=== PATIENT | female | born 2005 | race Caucasian/White ===

== ENCOUNTER 2024-09-22 09:18 | Emergency (ER) | payer MEDICAID, SELFPAY ==
--- NOTE | 2024-09-22 09:31 | EDNOTE_ITS ---
ED Wound/Laceration-RME/HPI General Chief Complaint: Wound/Laceration Stated Complaint: RIGHT LEG WOUND FROM FERAL CAT Time Seen by Provider: 09/22/24 09:31 Arrival date/time: 09/22/24 09:18 This is a 19-year-old female that comes into the emergency room with complaints of cat bite to her right lower leg. Patient states she was walking her dog and a cat that she thinks is possibly the neighbors attacked her. Patient has some scratches to her anterior lower leg and some puncture wounds to her posterior calf. Related Data Previous Rx's ?Medication ?Instructions ?Recorded ibuprofen 600 mg tablet 600 mg PO Q6H PRN fever or p ain 03/08/22 #30 tabs hydroxyzine HCl 25 mg tablet 25 mg PO TID PRN anxiety #30 tabs 12/06/22 amoxicillin 875 mg-potassium 1 tab PO Q12H #14 tabs clavulanate 125 mg tablet ibuprofen 600 mg tablet 600 mg PO QID PRN pain #10 t abs 09/22/24 Allergies Allergy/AdvReac Type Severity Reaction Status Date / Time No Known Allergies Allergy Verified 09/22/24 09:20 Review of Systems Review of Systems Systems Reviewed: All systems reviewed, normal except as documented Past Medical History Social History SMOKING STATUS: Current some day smoker ED Exam General General appearance: Present alert and in no apparent distress Head Head exam: Present atraumatic Eye Eye exam: Present normal appearance, PERRL and EOMI ENT ENT exam: Present normal exam, normal oropharynx and mucous membranes moist Neck Neck exam: Present normal inspection, full ROM and trachea midline Chest Chest inspection: Present normal inspection and symmetric chest wall rise Respiratory Respiratory exam: Present other (breathing even and unlabored ) Cardiovascular Cardiovascular exam: Present regular rate and other (cap refill less than 2 seconds) Abdominal Exam Abdominal exam: Present soft Extremities Exam Extremities exam: Present normal inspection and full ROM Back Exam Back exam: Present normal inspection and full ROM Neurological Exam Neurological exam: Present alert, oriented X3 and CN II-XII intact Psychiatric Psychiatric exam: Present normal affect and normal mood Skin Skin exam: Present warm, dry and other (right scratches to her anterior lower leg and some puncture wounds to her posterior calf. ) Course Quality Measures none Orders Category Date Time Status Wound Care NOW Care 09/22/24 09:56 Completed Amoxicillin/Pot Clav 875 [Augmentin 875] Med 09/22/24 09:59 Discontinued 1 tab PO X1 ONE Ibuprofen Tab [Motrin Tab] Med 09/22/24 09:59 Discontinued 800 mg PO X1 ONE Tetanus, Diphtheria Toxoids/Pf [Tenivac-Adult] Med 09/22/24 09:59 Discontinued 0.5 ml IMI .ONCE ONE Vital Signs Vital signs: Vital Signs Temperature 98.9 F 09/22/24 09:38 Pulse Rate 58 L 09/22/24 09:38 Respiratory Rate 18 09/22/24 09:38 Blood Pressure 97/61 09/22/24 09:38 Pulse Oximetry (%) 97 09/22/24 09:38 Oxygen Delivery Method Room Air 09/22/24 09:38 Wound / Laceration MDM Narrative MDM Narrative:: Spoke to patient at length. Patient's wound cleansed and dressing placed over the wound. I told patient to take pictures of wound to monitor to see if it is getting worse. Because multiple puncture wounds to the back of her leg and it was from a cat that is not hers. I will treat patient with antibiotics. I spoke to patient about rabies. Patient does not think it has rabies. She would like to hold off on any rabies medication. Today I gave patient a tetanus shot. Patient told to follow-up with her primary provider in 1 to 2 days. Come back to the emergency room symptoms change or worsen. Patient data External records reviewed:: [facility] previous records Clinical information provided by:: patient Social determinants that could affect healthcare access:: none Patient has the following chronic illnesses:: none How is presenting disease/condition affected by chronic disease/condition?: no chronic disease Evaluation data The following diagnostics were reviewed and interpreted by me:: other (specify) Lab and/or radiology exams considered but not ordered:: none Interpretation Summary: see note Medications / Prescriptions Medications or Prescriptions considered but not ordered:: none Medication administrations:: Medication Administration History Discontinued Medications Amoxicillin/Clavulanate Potassium (Amoxicillin/Pot Clav 875 Tablet) 1 tab PO X1 ONE Stop: 09/22/24 10:00 Last Admin: 09/22/24 10:27 Dose: 1 tab Documented By: KATE Ibuprofen (Ibuprofen Tab 400 Mg Tablet) 800 mg PO X1 ONE Stop: 09/22/24 10:00 Last Admin: 09/22/24 10:27 Dose: 800 mg Documented By: KATE Tetanus/Diphtheria Toxoids (Tetanus,Diphtheria Toxoids/Pf (Adult) 0.5 Ml Syringe) 0.5 ml IMi .ONCE ONE Stop: 09/22/24 10:00 Last Admin: 09/22/24 10:28 Dose: 0.5 ml Documented By: KATE see mar Consultations Consultation(s) initiated? (list below): No Diagnosis Wound Differential Diagnosis: laceration, abscess, abrasion and other (celluilitis, cat bite ) Most likely diagnosis given after review of the tests above:: cat bite s/p abrasions Admission Indicated Admission indicated?: not indicated Admission Request Was there a request for admission?: No Disposition Plan Disposition Plan: Discharge Discharge Attestation Discharge Attestation: The patient and all family members were given an opportunity to ask questions and understood the discharge instructions. Discharge instructions specifically effects, indications for sooner follow up or return to the emergency department, and the expected course of current diagnosis. Patient condition: Stable Discharge Plan Plan Patient Disposition: HOME (Self Care) Patient condition on transfer: Stable Prescriptions/Referrals Prescriptions/Med Rec: New amoxicillin-pot clavulanate 875-125 mg tablet 1 tab PO Q12H Qty: 14 0RF ibuprofen 600 mg tablet 600 mg PO QID PRN (Reason: pain) Qty: 10 0RF No Action ibuprofen 600 mg tablet 600 mg PO Q6H PRN (Reason: fever or pain) Qty: 30 0RF hydroxyzine HCl 25 mg tablet 25 mg PO TID PRN (Reason: anxiety) Qty: 30 0RF Problem List Clinical Impression: Cat bite, Puncture wound of lower leg, right Patient/Caregiver Discharge Instructions Discharge Activity: activity as tolerated Education Materials: ED Cat Bite, ED Puncture Wound (General) Additional Instructions: Follow up with primary provider in 1-2 days. Come back to ED if symptoms change or worsen Print Language: Belarusian Stand Alone Forms: Denae Award Info., Patient Portal Info Letter PA/INTEGRATION CONSULTANT Supervising Physician SHONDA/INTEGRATION CONSULTANT Supervising Physician: valentina
[2024-09-22 09:38] VITALS: BP 97/61; PULSE 58; RESP 18; TEMP 37.2; O2SAT 97; BMI 24.7
[2024-09-22] MEDS: IBUPROFEN TAB 400 MG TABLET 800 MG PO (10:27)
[2024-09-22] MEDS: AMOXICILLIN/POT CLAV 875 TABLET 1 TAB PO (10:27)
[2024-09-22] MEDS: TETANUS,DIPHTHERIA TOXOIDS/PF (ADULT) 0.5 ML SYRINGE IMi (10:28)
== END 2024-09-22 10:58 | disposition home or self-care (01) ==
PROVIDERS: Emergency Provider Emergency Medicine; PCP Family Medicine
DX: S81.851A Open bite, right lower leg, initial encounter (principal); W55.01XA Bitten by cat, initial encounter; Y93.K1 Activity, walking an animal; Z23 Encounter for immunization
CPT/HCPCS: 90471; 90714; 99282; A9270

== ENCOUNTER 2024-12-21 07:15 | Emergency (ER) | payer MEDICAID, SELFPAY ==
[2024-12-21 07:16] VITALS: BMI 25.4
--- NOTE | 2024-12-21 07:31 | XR_ITS ---
Examination: Transvaginal ultrasound of the pelvis, complete Technique: Transvaginal sonographic images pelvis performed using ferrara scale imaging Exam date and time: December 21 code 2024, 0744 hours INDICATIONS: Onset left-sided pelvic pain beginning 2 weeks ago FINDINGS: Uterus 9.2 cm, endometrial stripe 0.3 cm, no uterine mass or intrauterine gestation Right ovary 2.5 cm arterial flow. Left ovary 3.2 cm low Mild to moderate fluid in the cul-de-sac. IMPRESSION: No uterine mass or intrauterine gestation Mild to moderate free fluid in the cul-de-sac, differential would include pelvic inflammatory disease, clinical correlation advised
[2024-12-21 07:32] VITALS: BP 104/64; PULSE 62; RESP 18; TEMP 36.6; O2SAT 98
--- NOTE | 2024-12-21 07:32 | PD.EDRME ---
Rapid Medical Screening Exam [facility] Arrival date/time: 12/21/24 07:15 CC: Left upper and left lower quadrant abdominal pain HPI ongoing for 2 weeks worse this morning. 1 round of diarrhea. Denies nausea or vomiting. No prior history of similar events denies any painful urination. Chief Complaint: Abdominal Pain Time Seen by Provider: 12/21/24 07:29
[2024-12-21 07:54] LABS: Collection Type, Urine Clean Catch
[2024-12-21 07:56] LABS: Basophils # (Auto) 0.0 Thou/mm3 (0.0-0.2); Basophils % (Auto) 0 % (0-2.5); Eosinophils # (Auto) 0.1 Thou/mm3 (0.0-0.5); Eosinophils % (Auto) 2 % (0-10); Hematocrit 40.7 % (36.0-46.0); Hemoglobin 13.5 g/dL (12.0-16.0); Immature Granulocytes Auto 0.02 Thou/mm3 (0.00-0.00); Lymphocytes # (Auto) 2.6 Thou/mm3 (1.0-4.8); Lymphocytes % (Auto) 29 % (10-50); Mean Corpuscular HGB Conc 33.2 g/dl (31.0-37.0); Mean Corpuscular Hemoglobin 30.6 pg (25.0-35.0); Mean Corpuscular Volume 92 fL (80-100); Monocytes # (Auto) 0.6 Thou/mm3 (0.0-0.8); Monocytes % (Auto) 7 % (0-12); Neutrophils # (Auto) 5.6 Thou/mm3 (1.8-7.7); Neutrophils % (Auto) 63 % (37-80); Nucleated Red Blood Cell # 0.00 Thou/mm3 (0.00-0.00); Nucleated Red Blood Cell % 0 /100 WBC (0); Platelet Count 310 Thou/mm3 (140-440); RDW Standard Deviation 43.6 fL (36.4-46.3); Red Blood Count 4.41 Miln/mm3 (4.00-5.20); White Blood Count 8.9 Thou/mm3 (3.6-11.0)
[2024-12-21 08:03] LABS: Bilirubin,Urine Negative (Negative); Blood,Urine 3+ (Negative); Clarity,Urine Clear (Clear/Hazy); Color,Urine Colorless (Lt Yel-Yel); Culture Indicated,Urine Not Indicated; Glucose, Urine Negative (Negative); Ketones,Urine Negative (Negative); Leukocyte Esterase,Urine Negative (Negative); Nitrite,Urine Negative (Negative); PH,Urine 7.0 (5.0-7.0); Protein,Urine Negative (Neg - Trace); RBC,Urine 4 /hpf (0-3); Specific Gravity,Urine 1.011 (1.001-1.035); Squamous Epithelial Cell,Urine 5 /hpf (0-5); Urobilinogen,Urine Negative mg/dL (0.0-1.0); WBC,Urine 2 /hpf (0-5)
[2024-12-21 08:28] LABS: Alanine Aminotransferase < 7 U/L (10-49); Albumin, Serum 4.6 gm/dL (3.5-5.0); Albumin/Globulin Ratio 1.9 (1.2-2.2); Alkaline Phosphatase 62 U/L (46-116); Anion Gap 8 (7-16); Aspartate Amino Transferase 18 U/L (0-34); BUN/Creatinine Ratio 13 Ratio (12-20); Bilirubin,Total 0.4 mg/dL (0.3-1.2); Blood Urea Nitrogen 8 mg/dL (9-23); Calcium 9.5 mg/dL (8.3-10.6); Calcium (Corrected) 9.5 mg/dL (8.5-10.1); Carbon Dioxide 28.2 mMol/L (20.0-31.0); Chloride 106 mMol/L (98-107); Creatinine (Component) 0.6 mg/dL (0.6-1.3); Estimated Creatinine Clearance 134.8 mL/min (>60); Globulin 2.4 gm/dL (2.3-3.5); Glucose 94 mg/dL (74-106); Lipase 24 U/L (12-53); Osmolality,Calculated 281 (275-295); Potassium 3.8 mMol/L (3.4-5.1); Sodium 142 mMol/L (136-145); Total Protein 7.0 gm/dL (5.7-8.2); eGFR > 60 See Note
--- NOTE | 2024-12-21 09:12 | EDNOTE_ITS ---
ED General RME/HPI General Chief complaint: Abdominal Pain Stated complaint: ABD PAIN Time Seen by Provider: 12/21/24 07:29 Arrival date/time: 12/21/24 07:15 CC: Left upper left lower quadrant, ongoing for 2 weeks with increased worsening 1 round of diarrhea. No OTC medicines taken. Patient states she is of al ternative lifestyle, and denies any penetration but has had intermittent contact. Patient denies vaginal discharge vaginal bleeding dysuria hematuria rectal pain. RME / HPI RME / HPI narrative: 12/21/24 07:15 CC: Left upper and left lower quadrant abdominal pain HPI ongoing for 2 weeks worse this morning. 1 round of diarrhea. Denies nausea or vomiting. No prior history of similar events denies any painful urination. Related Data Previous Rx's ?Medication ?Instructions ?Recorded ibuprofen 600 mg tablet 600 mg PO Q6H PRN fever or p ain 03/08/22 #30 tabs hydroxyzine HCl 25 mg tablet 25 mg PO TID PRN anxiety #30 tabs 12/06/22 amoxicillin 875 mg-potassium 1 tab PO Q12H #14 tabs clavulanate 125 mg tablet ibuprofen 600 mg tablet 600 mg PO QID PRN pain #10 t abs 09/22/24 Allergies Allergy/AdvReac Type Severity Reaction Status Date / Time No Known Allergies Allergy Verified 12/21/24 07:16 Past Medical History Social History SMOKING STATUS: Never smoker ED Exam Narrative Physical exam: [General: Not in any acute distress Head normocephalic HEENT: Within acceptable limits Neck is supple nontender Chest equal chest rise nontender to palpation Respiratory: Clear to auscultation no wheezes crackles or rubs CV: Rate rhythm is regular no murmurs rubs or clicks Abdomen is soft nontender no masses positive bowel sounds all 4 quadrants Back: No CVA tenderness no spinous process tenderness from cervical spine thoracic and lumbar spine Skin: Intact no petechiae rash induration ulceration or crepitus Extremities: Moving all extremity against resistance cap refill less than 2 seconds neurosensory intact Neuro: Awake alert oriented x3 Glascow coma 15 no focal deficits] Course Quality Measures none Orders Category Date Time Status US transvaginal Stat Exams 12/21/24 07:31 Completed CBC Stat Lab 12/21/24 07:40 Completed CMP [Comprehensive Metabolic Panel] Stat Lab 12/21/24 07:40 Completed Lipase Stat Lab 12/21/24 07:40 Completed Urinalysis, C/S if Indicated Stat Lab 12/21/24 07:48 Completed Vital Signs Vital signs: Vital Signs Temperature 97.9 F 12/21/24 07:32 Pulse Rate 62 12/21/24 07:32 Respiratory Rate 18 12/21/24 07:32 Blood Pressure 104/64 12/21/24 07:32 Pulse Oximetry (%) 98 12/21/24 07:32 Oxygen Delivery Method Room Air 12/21/24 07:32 Discharge Plan Plan Patient Disposition: HOME (Self Care) Patient condition on transfer: Stable Prescriptions/Referrals Prescriptions/Med Rec: No Action ibuprofen 600 mg tablet 600 mg PO Q6H PRN (Reason: fever or pain) Qty: 30 0RF hydroxyzine HCl 25 mg tablet 25 mg PO TID PRN (Reason: anxiety) Qty: 30 0RF amoxicillin-pot clavulanate 875-125 mg tablet 1 tab PO Q12H Qty: 14 0RF ibuprofen 600 mg tablet 600 mg PO QID PRN (Reason: pain) Qty: 10 0RF Referrals: Frederick Sumner MD [Primary Care Provider] - In 1 week Problem List Clinical Impression: Abdominal pain Patient/Caregiver Discharge Instructions Other Activity Instructions:: Take ibuprofen or Tylenol for pain, follow-up with the [facility] or individual stated above if there is worsening of symptoms including fever vaginal discharge painful urination worsening pain return to the emergency room for reevaluation. Education Materials: Abdominal Pain Print Language: Qatari Stand Alone Forms: Denae Award Info., Work/School Release, Patient Portal Info Letter SHONDA/KEVIN Supervising Physician SHONDA/KEVIN Supervising Physician: Jesús Nieto ENP [facility] Clinical Information Provided by patient Medical Records Reviewed [facility] Meds/Rx Considered, not Ordered None Labs/Rad/Tests considered, not Ordered None Chronic Illness/Social Conditions which may negatively complicate care or outcome(s)-explain: None or not applicable EKG EKG not done Lab Interpretation Lab(s) interpretation(s): CBC shows no acute leukocytosis anemia thrombocytopenia CMP shows no acute electrolyte imbalances renal impairment transaminitis or T. bili elevation Urine is negative with 3+ blood for plus RBCs leukocyte esterase and bacteria negative. Lipase is negative. Imaging Provider imaging interpretation(s): Ultrasound shows some fluid in the endometrial stripe but no other acute finding. Radiology reports / interpretation(s): I have a low index of suspicion of anything acute. The patient is very vague in her sexual contact I do not feel that she has STD cervicitis as she has stable vital signs and is nontoxic-appearing and denies any discharge Diagnosis Differential diagnosis: Pancreatitis ovarian cyst cervicitis Differential dx and/or dx ruled out: Abdominal pain Dispositon Disposition: Discharge Home
== END 2024-12-21 09:38 | disposition home or self-care (01) ==
PROVIDERS: Registered Nurse General Practice; Emergency Provider Family Medicine; PCP Family Medicine
DX: R10.32 Left lower quadrant pain (principal); R10.12 Left upper quadrant pain; R19.7 Diarrhea, unspecified
CPT/HCPCS: 36415; 76830; 80053; 81001; 83690; 85025; 99283

== ENCOUNTER 2025-01-24 07:22 | Emergency (ER) | payer MEDICAID, SELFPAY ==
[2025-01-24 07:30] VITALS: BP 116/76; PULSE 65; RESP 16; TEMP 36.9; O2SAT 96
--- NOTE | 2025-01-24 07:38 | XR_ITS ---
Examination: PA lateral chest 2 views Technique: Upright PA lateral chest 2 views Date and time: January 24, 2025 0741 hrs. Indications: Onset chest pain today Findings: Normal heart size. Lungs are clear The osseous structures are intact Impression: No active disease
--- NOTE | 2025-01-24 07:38 | EKG_ITS ---
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
[2025-01-24 08:48] LABS: Troponin I < 0.002 ng/mL (0.0-0.045)
--- NOTE | 2025-01-24 09:11 | PD.EDCHEST ---
ED Chest Pain RME/HPI General Chief Complaint: Chest Pain Stated Complaint: CHEST PAIN Time Seen by Provider: 01/24/25 07:25 Arrival date/time: 01/24/25 07:22 19-year-old female presents emergency department today for complaints of chest pain ongoing since yesterday Limitations: no limitations Related Data Previous Rx's ?Medication ?Instructions ?Recorded ibuprofen 600 mg tablet 600 mg PO Q6H PRN fever or pain 03/08/22 #30 tabs hydroxyzine HCl 25 mg tablet 25 mg PO TID PRN anxiety #30 tabs 12/06/22 amoxicillin 875 mg-potassium 1 tab PO Q12H #14 tabs 09/22/24 clavulanate 125 mg tablet ibuprofen 600 mg tablet 600 mg PO QID PRN pain #10 tabs 09/22/24 Allergies Allergy/AdvReac Type Severity Reaction Status Date / Time No Known Allergies Allergy Verified 12/21/24 07:16 Review of Systems Review of Systems Systems Reviewed: All systems reviewed, normal except as documented Constitutional Constitutional: Reports system reviewed and no additional complaints, except as documented, Denies fever(s) and Denies headache(s) Eyes Eyes: Reports system reviewed and no additional complaints, except as documented and Denies blurry vision ENT Ears, Nose, Mouth, and Throat: Reports system reviewed and no additional complaints, except as documented, Denies headache(s), Denies nasal congestion and Denies nasal discharge Cardiovascular Cardiovascular: Reports system reviewed and no additional complaints, except as documented, Reports chest pain and Denies dyspnea Respiratory Respiratory: Reports system reviewed and no additional complaints, except as documented, Denies chest congestion, Denies cough and Denies dyspnea Gastrointestinal Gastrointestinal: Reports system reviewed and no additional complaints, except as documented and Denies abdominal pain Integumentary/Breasts Skin/Breast: Reports system reviewed and no additional complaints, except as documented and Denies rash Neurologic Neurologic: Reports system reviewed and no additional complaints, except as documented, Reports as per HPI and Denies headache(s) Past Medical History Social History SMOKING STATUS: Never smoker ED Exam General Limitations: Present no limitations General appearance: Present alert and in no apparent distress Head Head exam: Present atraumatic, normocephalic and normal inspection Eye Eye exam: Present normal appearance, PERRL and EOMI; Absent conjunctival injection ENT ENT exam: Present normal exam, normal oropharynx and mucous membranes moist Neck Neck exam: Present normal inspection, full ROM and trachea midline Chest Chest inspection: Present normal inspection and symmetric chest wall rise Respiratory Respiratory exam: Present normal lung sounds bilaterally; Absent respiratory distress Cardiovascular Cardiovascular exam: Present regular rate, normal rhythm and normal heart sounds; Absent bradycardia, tachycardia, irregular rhythm or JVD Abdominal Exam Abdominal exam: Present soft and normal bowel sounds; Absent distention, tenderness, guarding, rebound or rigidity Extremities Exam Extremities exam: Present normal inspection and full ROM Back Exam Back exam: Present normal inspection and full ROM Neurological Exam Neurological exam: Present alert, oriented X3, CN II-XII intact, normal gait and reflexes normal; Absent motor sensory deficit Psychiatric Psychiatric exam: Present normal affect and normal mood Skin Skin exam: Present warm, dry, intact and normal color Course Quality Measures none Orders Category Date Time Status EKG (ED ONLY) *Do not use* NOW Care 01/24/25 07:38 Completed EKG (ED Only) Stat Exams 01/24/25 07:38 Draft XR chest 2V Stat Exams 01/24/25 07:38 Completed Troponin I Stat Lab 01/24/25 07:45 Completed Vital Signs Vital signs: Vital Signs Temperature 98.4 F 01/24/25 07:30 Pulse Rate 65 01/24/25 07:30 Respiratory Rate 16 01/24/25 07:30 Blood Pressure 116/76 01/24/25 07:30 Pulse Oximetry (%) 96 01/24/25 07:30 Oxygen Delivery Method Room Air 01/24/25 07:30 O2 saturation 96% room air within normal limits PROCEDURES: EKG Interpretation #1: Date of EK01/24/25 Time of EK:39 Rate: 55 Interpretation: Interpreted by me EKG Impression: Normal sinus rhythm, No acute ST-T changes, No ectopy, Sinus arrhythmia, No ischemic changes, Normal QRS, Normal intervals and Normal axis Chest Pain MDM Narrative MDM Narrative:: 19-year-old female presents emergency department today for complaints of chest pain ongoing since yesterday On exam patient well-appearing patient does not appear toxic no acute stress Chest x-ray EKG and troponin obtained Lab work unremarkable troponin is normal EKG unremarkable chest x-ray within normal limits Patient discharged home in no distress to follow-up with primary care doctor in the next 24 to 48 hours and for any worsening symptoms to return to the ER immediately Patient data External records reviewed:: [facility] previous records Clinical information provided by:: patient Social determinants that could affect healthcare access:: none Patient has the following chronic illnesses:: None How is presenting disease/condition affected by chronic disease/condition?: no chronic disease Evaluation data The following diagnostics were reviewed and interpreted by me:: lab results, radiology exam(s) and EKG tracing(s) Lab and/or radiology exams considered but not ordered:: Labs radiology, EKG obtained Interpretation Summary: Reviewed by me Medications / Prescriptions Medications or Prescriptions considered but not ordered:: Given no meds Medication administrations:: No meds Consultations Consultation(s) initiated? (list below): No Diagnosis Chest Pain Differential Diagnosis: fracture of rib, pneumothorax, costochondritis and chest pain Most likely diagnosis given after review of the tests above:: Chest pain noncardiac Admission Indicated Admission indicated?: not indicated Admission Request Was there a request for admission?: No Disposition Plan Disposition Plan: Discharge Discharge Attestation Discharge Attestation: The patient and all family members were given an opportunity to ask questions and understood the discharge instructions. Discharge instructions specifically effects, indications for sooner follow up or return to the emergency department, and the expected course of current diagnosis. Patient condition: Stable Discharge Plan Plan Patient Disposition: HOME (Self Care) Discharge Disposition comment: Stable Prescriptions/Referrals Prescriptions/Med Rec: No Action ibuprofen 600 mg tablet 600 mg PO Q6H PRN (Reason: fever or pain) Qty: 30 0RF hydroxyzine HCl 25 mg tablet 25 mg PO TID PRN (Reason: anxiety) Qty: 30 0RF amoxicillin-pot clavulanate 875-125 mg tablet 1 tab PO Q12H Qty: 14 0RF ibuprofen 600 mg tablet 600 mg PO QID PRN (Reason: pain) Qty: 10 0RF Referrals: No Primary/Family,Physician [Primary Care Provider] - 01/25/25 Problem List Clinical Impression: Atypical chest pain Patient/Caregiver Discharge Instructions Education Materials: Medicine for Pain Additional Instructions: Please follow up with your primary care doctor in the next 24-48hrs for any worsening symptoms return here immediately Print Language: Georgian Stand Alone Forms: Denae Award Info., Work/School Release, Patient Portal Info Letter PA/BASKETBALL ASSEMBLER Supervising Physician PA/BASKETBALL ASSEMBLER Supervising Physician: Dr. sanchez
== END 2025-01-24 10:05 | disposition home or self-care (01) ==
PROVIDERS: Emergency Provider Nurse Practitioner Primary Care
DX: R07.89 Other chest pain (principal); I49.8 Other specified cardiac arrhythmias
CPT/HCPCS: 36415; 71046; 84484; 93005; 99283